=== PATIENT | male | born 1945 ===

== ENCOUNTER 2023-01-07 20:10 | Emergency (ER) | payer MEDICARE, BC ==
[2023-01-07] MEDS ORDERED: levETIRAcetam 1,000 MG in Sodium Chloride 0.9% 100 ML IV ONE (20:30)
[2023-01-07] MEDS ORDERED: Succinylcholine 200 MG/10 ML MDV IV ONE (20:33)
[2023-01-07] MEDS ORDERED: Propofol 200 MG/20 ML SDV IV ONE (20:33)
[2023-01-07] MEDS ORDERED: Midazolam 1 MG/ML 2 ML SDV IV ONE ×2 (20:33)
[2023-01-07] MEDS ORDERED: Rocuronium 100 MG/10 ML MDV IV ONE (20:33)
[2023-01-07] MEDS ORDERED: Etomidate 2 MG/ML 20 ML SDV IVPUSH ONE (20:33)
[2023-01-07] MEDS ORDERED: fentaNYL 100 MCG/2 ML SDV IVPUSH ONE (20:44)
[2023-01-07] MEDS: Sodium Chloride 0.9% 10 ML Syringe FLUSH PRN ×7 (20:45→21:24)
[2023-01-07] MEDS ORDERED: Midazolam 1 MG/ML 2 ML SDV ONE (20:52)
[2023-01-07 21:29] LABS: ESTIMATED GFR 39 mL/min (>60)
[2023-01-07 21:32] LABS: BASE EXCESS VENOUS,POC -25 mmol/L (-2 - 3+); PCO2 VENOUS,POC 33 mmHg (41-51); PH VENOUS,POC 6.93 pH Units (7.32-7.43)
== END 2023-01-07 21:41 ==
LOC: FB.ED 20:32
DX: R56.9 Unspecified convulsions (principal); N17.9 Acute kidney failure, unspecified; I10 Essential (primary) hypertension; J96.90 Respiratory failure, unspecified, unspecified whether with hypoxia or hypercapnia; E87.20 Acidosis, unspecified; E66.01 Morbid (severe) obesity due to excess calories
CPT/HCPCS: 36410; 36415; 70450; 71045; 80053; 82947; 83605; 83735; 83880; 84484; 85025; 85610; 85730; 87040; 93005; 93010; 96374; 96375; 99285-25; 99291; J0330; J1953; J2250; J2704; J3010; J3490